=== PATIENT | female | born 1970 | race Two or more races ===

== ENCOUNTER 2018-03-11 13:01 | Inpatient (IN) | payer OTHER ==
[2018-03-11 15:28] VITALS: BMI 26.4
--- NOTE | 2018-03-11 15:35 | HP ---
Admission [facility] Chief Complaint: "I'm all over the place and I want my life back in place." Patient is here for Rehab for Alcohol and Crack Cocaine. Allergies/Adverse Reactions: Allergies Allergy/AdvReac Type Severity Reaction Status Date / Time No Known Drug Allergies Allergy Verified 03/17/14 19:44 milk AdvReac Verified 03/17/14 19:09 History of Present Illness: Patient is a 47 YO female here for Rehab for Alcohol and Cocaine use. Patient had one previous Detox/Rehab admission at [facility] in 2013. Patient has had several Detox / Rehab amdissions at various locations (most recent: [facility] ( [facility]), 2017). Exam Limitations: No Limitations - Ebola screening Have you traveled outside of the country in the last 21 days: No Have you had contact with anyone from an Ebola affected area: No Have you been sick,other than usual withdrawal symptoms: No Do you have a fever: No - Review of Systems Constitutional: Loss of Appetite, Malaise, Unintentional Wgt. Loss (Lost approx. 20 lbs. over last 3 months.) EENT: reports: Blurred Vision Respiratory: reports: No Symptoms reported Cardiac: reports: No Symptoms Reported GI: reports: Constipated, Poor Appetite : reports: No Symptoms Reported Musculoskeletal: reports: Back Pain Integumentary: reports: No Symptoms Reported Neuro: reports: Headache, Tremors Endocrine: reports: No Symptoms Reported Hematology: reports: Anemia (Iron-Deficiency type. Takes Iron supplement daily.) Psychiatric: reports: Judgement Intact, Mood/Affect Appropiate, Anxious, Depressed (Takes med.) Other Systems: Reviewed and Negative Patient History - Patient Medical History Hx Anemia: Yes (take iron pills) Hx Asthma: No Hx Chronic Obstructive Pulmonary Disease (COPD): No Hx Cancer: No Hx Cardiac Disorders: No Hx Congestive Heart Failure: No Hx Hypertension: Yes (On meds.) Hx Hypercholesterolemia: No Hx Pacemaker: No HX Cerebrovascular Accident: Yes ('Mini-Stroke' in 2006; No residual effect.) Hx Seizures: No Hx Dementia: No Hx Diabetes: No Hx Gastrointestinal Disorders: No Hx Liver Disease: No Hx Genitourinary Disorders: No Hx Sexually Transmitted Disorders: Yes (TRICHOMONIASIS IN PAST, TREATED.) Hx Renal Disease (ESRD): No Hx Thyroid Disease: No Hx Human Immunodeficiency Virus (HIV): No Hx Hepatitis C: No (Negative History.) Hx Depression: Yes (On meds.) Hx Suicide Attempt: Yes (X3 TIME BY SLASHING WRIST AND DRINKING CLORAX; PT DENIES CURRENT SI / HI.) Hx Bipolar Disorder: Yes (Takes meds.) Hx Schizophrenia: Yes (Schizoaffective Disorder; Takes Meds.) - Patient Surgical History Past Surgical History: Yes Hx Neurologic Surgery: No Hx Cataract Extraction: No Hx Cardiac Surgery: No Hx Lung Surgery: No Hx Breast Surgery: No Hx Breast Biopsy: No Hx Abdominal Surgery: No Hx Appendectomy: No Hx Cholecystectomy: No Hx Genitourinary Surgery: Yes (fibroids removed (1997); Relapsed.) Hx Section: No Hx Orthopedic Surgery: No Hx Hysterectomy: No Other Surgical History: DENIES. Anesthesia Reaction: No - PPD History Previous Implant?: Yes Documented Results: Positive w/o proof (CXR (Negative) at [facility], 2017.) Implanted On Prior [facility] Admission?: No PPD to be Administered?: No - Reproductive History Patient is a Female of Child Bearing Age (11 -55 yrs old): Yes Last Menstrual Period: 11/30/13 Patient : No - Smoking Cessation Smoking history: Former smoker Have you smoked in the past 12 months: Yes Aproximately how many cigarettes per day: 20 If you are a former smoker, when did you quit?: 02/21/2018 Cigars Per Day: 0 Hx Chewing Tobacco Use: No Initiated information on smoking cessation: Yes 'Breaking Loose' booklet given: 03/11/18 (GIVEN TO PATIENT.) - Substance & Tx. History Hx Alcohol Use: Yes Hx Substance Use: Yes Substance Use Type: Alcohol, Cocaine Hx Substance Use Treatment: Yes (Detox/Rehab at [facility]: 2017; Detox/Rehab at [facility]: 2013.) - Substances Abused Alcohol Route: Oral Frequency: Daily Amount used: 2 Pints Hard Liquor Age of first use: 14 Date of Last Use: 02/21/18 Crack Route: Smoking Frequency: Daily Amount used: $ 200 Age of first use: 33 Date of Last Use: 02/21/18 Family Disease History - Family Disease History Family Disease History: Heart Disease: Grandparent (HTN), Father (HTN; Cirrhosis of Liver, .), Mother (HTN), Other: Father Admission Physical Exam [facility] - Vital Signs Vital Signs: Vital Signs - 24 hr 03/11/18 15:24 Temperature 98.5 F Pulse Rate 91 H Respiratory 18 Rate Blood Pressure 129/85 - Physical General Appearance: Yes: No Apparent Distress, Nourished, Appropriately Dressed , Tremorous, Anxious HEENTM: Yes: Hearing grossly Normal, Normocephalic, Normal Voice, ZAIDA, Pharynx Normal Respiratory: Yes: Chest Non-Tender, Lungs Clear, No Respiratory Distress, No Accessory Muscle Use Neck: Yes: No masses,lesions,Nodules, Supple, Trachea in good position Breast: Yes: Breast Exam Deferred Cardiology: Yes: Regular Rhythm, Regular Rate, S1, S2 Abdominal: Yes: Normal Bowel Sounds, Non Tender, Flat, Soft Genitourinary: Yes: Within Normal Limits Back: Yes: Decreased Range of Motion Musculoskeletal: Yes: Gait Steady, Back pain Extremities: Yes: Normal Capillary Refill, Normal Range of Motion, Non-Tender, Tremors Neurological: Yes: Fully Oriented, Alert, Normal Mood/Affect, Normal Response Integumentary: Yes: Normal Color, Dry, Warm Lymphatic: Yes: Within Normal Limits - Diagnostic (1) Low back pain Current Visit: Yes Status: Chronic Qualifiers: Chronicity: unspecified Back pain laterality: unspecified Sciatica presence: without sciatica Qualified Code(s): M54.5 - Low back pain (2) History of schizoaffective disorder Current Visit: Yes Status: Suspected (3) Alcohol dependence Current Visit: Yes Status: Chronic Qualifiers: Substance use status: uncomplicated Qualified Code(s): F10.20 - Alcohol dependence, uncomplicated (4) Cocaine dependence Current Visit: Yes Status: Chronic Qualifiers: Substance use status: uncomplicated Qualified Code(s): F14.20 - Cocaine dependence, uncomplicated (5) History of depression Current Visit: Yes Status: Suspected (6) History of bipolar disorder Current Visit: Yes Status: Suspected (7) History of uterine fibroid Current Visit: Yes Status: Chronic (8) Hypertension Current Visit: Yes Status: Chronic Qualifiers: Hypertension type: essential hypertension Qualified Code(s): I10 - Essential (primary) hypertension Cleared for Admission [facility] - Detox or Rehab Claeared for Rehab Admission: Yes [facility] Breath Alcohol Content Breath Alcohol Content: 0 Urine Pregancy Test - Result Urine Test Results: Negative- NO Line Present Urine Drug Screen - Results Drug Screen Negative: No Urine Drug Screen Results: TCA-Tricyclic Antidepress Inpatient Rehab Admission - Initial Determination Are CD services needed?: Yes Free of communicable disease: Yes Not in need of hospitalization: Yes - Rehab Admission Criteria Previous failed treatment: Yes Comorbidities: Yes Patient is meeting Inpatient Rehab admission criteria:: Yes
[2018-03-11] MEDS ORDERED: MAG HYDROX/AL HYDROX/SIMETH 30 ML UNIT-DOSE CUP PO PRN (16:35)
[2018-03-11] MEDS ORDERED: MENTHOL/PHENOL 1 EACH UD MM PRN (16:35)
[2018-03-11] MEDS ORDERED: MAGNESIUM HYDROX 2400MG/30ML ORAL SUSPENSION 30 ML CUP PO PRN (16:35)
[2018-03-11] MEDS ORDERED: LOPERAMIDE HCL 2 MG CAPSULE PO PRN (16:35)
[2018-03-11] MEDS ORDERED: P-EPHED 60MG/TRIPROLIDI 2.5MG TABLET PO PRN (16:35)
[2018-03-11] MEDS ORDERED: guaiFENesin/D-METHORPHAN HB 10 ML UNIT-DOSE CUPS PO PRN (16:35)
[2018-03-11 18:27] LABS: HEMATOCRIT 34.8 % (32.4-45.2); HEMOGLOBIN 11.3 GM/dL (10.7-15.3); MCH 26.3 pg (25.7-33.7); MCHC 32.5 g/dl (32.0-36.0); MEAN PLT VOLUME 9.9 fl (7.5-11.1); PLATELET COUNT 240 K/MM3 (134-434); RBC 4.29 M/mm3 (3.60-5.2); RDW 24.6 % (11.6-15.6); WHITE BLOOD COUNT 7.3 K/mm3 (4.0-10.0)
[2018-03-11 18:30] LABS: ADD RBC MORPHOLOGY YES
[2018-03-11 18:41] LABS: ALBUMIN 3.6 g/dl (3.4-5.0); ALK PHOS 80 U/L (45-117); ANION GAP 5 (8-16); BILIRUBIN,TOTAL 0.3 mg/dL (0.2-1.0); BLOOD UREA NITROGEN 15 mg/dL (7-18); CHLORIDE 106 mmol/L (98-107); CO2 28 mmol/L (21-32); CREATININE 0.6 mg/dL (0.55-1.02); GLUCOSE,RANDOM 97 mg/dL (74-106); POTASSIUM 4.1 mmol/L (3.5-5.1); SGOT/AST 15 U/L (15-37); SGPT/ALT 23 U/L (12-78); SODIUM 139 mmol/L (136-145); TOT PROT 7.2 g/dl (6.4-8.2)
--- NOTE | 2018-03-11 20:53 | PN ---
[facility] Progress Note Note: Psychiatry Attending's system administration manager note : Called to enter orders for medications. New admission : 42 y/o female diagnosed with Schizoaffective Disorder. Discharged from [facility] today (self-report). Direct admission to [address]. Medications requested : Seroquel 50 mg/am + 300 mg/hs Remeron 30 mg/am NOT taken for two years until admission to [facility]. Restarted during hospitalization this February 2018. Not consistent with pharmacy claims of 03/11/18. Document from [facility] attests to seroquel 50 mg/300 mg. As per nurse on duty.Patient insists on resuming medications. Plan : Will resume seroquel at the dose of 150 mg po hs. Dose to be adjusted in AM after evaluation by unit psychiatrist. Discussed with the patient.
[2018-03-11] MEDS: DOCUSATE SODIUM 100 MG CAPSULE (FP) PO SCH (21:36)
[2018-03-11 21:37] LABS: ANISOCYTOSIS 2+
[2018-03-11] MEDS: QUEtiapine FUMARATE 50 MG TABLET PO SCH (21:37)
[2018-03-11] MEDS: THIAMINE HCL 100 MG TABLET (FP) PO SCH (21:37)
[2018-03-11] MEDS: AMMONIUM LACTATE 12% LOTION 225 GM BOTTLE TP SCH (21:38)
[2018-03-11] MEDS ORDERED: MELATONIN 5 MG TABLETS PO PRN (22:00)
[2018-03-11 23:41] LABS: URINE APPEARANCE CLOUDY; URINE BILIRUBIN NEGATIVE (<2.0 mg/dL); URINE COLOR YELLOW; URINE GLUCOSE (UA) NEGATIVE (NEGATIVE); URINE KETONE NEGATIVE (NEGATIVE); URINE LEUK ESTERASE NEGATIVE (NEGATIVE); URINE NITRITE NEGATIVE (NEGATIVE); URINE PROTEIN NEGATIVE (NEGATIVE); URINE UROBILINOGEN NEGATIVE mg/dL (0.2-1.0)
[2018-03-12] MEDS: FERROUS SO4 325 MG TABLET (FP) PO SCH ×2 (07:25→17:05)
[2018-03-12] MEDS ORDERED: PATIENT'S OWN MEDICATION (NON-FORMULARY) (Ferrous Sulfate [Ferrous Sulfate] 325 MG) PO SCH (10:00)
[2018-03-12] MEDS: DOCUSATE SODIUM 100 MG CAPSULE (FP) PO SCH ×2 (10:21→21:35)
[2018-03-12] MEDS: ASPIRIN 81 MG CHEWABLE TABLETS PO SCH (10:21)
[2018-03-12] MEDS: LISINOPRIL 20 MG TABLET (FP) PO SCH (10:22)
[2018-03-12] MEDS: FOLIC ACID 1 MG TABLET (FP) PO SCH (10:22)
[2018-03-12] MEDS: PRENATAL VITAMINS W/ FOLIC ACID TABLET (FP) PO SCH (10:22)
[2018-03-12] MEDS: amLODIPine BESYLATE 5 MG TABLET (FP) PO SCH (10:22)
[2018-03-12] MEDS: AMMONIUM LACTATE 12% LOTION 225 GM BOTTLE TP SCH ×2 (10:22→21:36)
[2018-03-12] MEDS ORDERED: PT OWN MED DRAWER 7, Y5N ONE (10:25)
--- NOTE | 2018-03-12 11:30 | EKG ---
Test Reason : Blood Pressure : / mmHG Vent. Rate : 094 BPM Atrial Rate : 094 BPM P-R Int : 184 ms QRS Dur : 070 ms QT Int : 356 ms P-R-T Axes : 035 026 032 degrees QTc Int : 445 ms NORMAL SINUS RHYTHM NONSPECIFIC T WAVE ABNORMALITY ABNORMAL ECG NO PREVIOUS ECGS AVAILABLE Confirmed by CLAUDIA SANTOS MD ([id number]) on 03/12/2018 11:29:47 AM Referred By: Confirmed By:CLAUDIA SANTOS MD
[2018-03-12] MEDS: MIRTAZAPINE 15 MG TABLET (FP) PO SCH (11:34)
[2018-03-12] MEDS ORDERED: QUEtiapine FUMARATE 50 MG TABLET PO SCH (14:00)
[2018-03-12] MEDS: ACETAMINOPHEN 325 MG TABLET (FP) PO PRN (16:22)
[2018-03-12] MEDS: THIAMINE HCL 100 MG TABLET (FP) PO SCH (21:34)
[2018-03-12] MEDS: QUEtiapine FUMARATE 50 MG TABLET PO SCH (21:35)
[2018-03-13] MEDS: FERROUS SO4 325 MG TABLET (FP) PO SCH ×2 (07:02→17:42)
[2018-03-13] MEDS: LISINOPRIL 20 MG TABLET (FP) PO SCH ×2 (07:18→10:57)
[2018-03-13] MEDS: amLODIPine BESYLATE 5 MG TABLET (FP) PO SCH ×2 (07:19→10:57)
--- NOTE | 2018-03-13 10:35 | PN ---
[facility] Progress Note Note: CXR results normal. Continue to monitor clinically.
[2018-03-13] MEDS: PRENATAL VITAMINS W/ FOLIC ACID TABLET (FP) PO SCH (10:53)
[2018-03-13] MEDS: FOLIC ACID 1 MG TABLET (FP) PO SCH (10:54)
[2018-03-13] MEDS: MIRTAZAPINE 15 MG TABLET (FP) PO SCH (10:54)
[2018-03-13] MEDS: ASPIRIN 81 MG CHEWABLE TABLETS PO SCH (10:56)
[2018-03-13] MEDS: AMMONIUM LACTATE 12% LOTION 225 GM BOTTLE TP SCH ×2 (10:57→21:45)
[2018-03-13] MEDS: DOCUSATE SODIUM 100 MG CAPSULE (FP) PO SCH ×2 (10:57→21:44)
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
[2018-03-13] MEDS: QUEtiapine FUMARATE 50 MG TABLET PO SCH ×2 (14:09→17:42)
[2018-03-13] MEDS: ACETAMINOPHEN 325 MG TABLET (FP) PO PRN ×2 (15:05→21:43)
[2018-03-13] MEDS: THIAMINE HCL 100 MG TABLET (FP) PO SCH (21:44)
[2018-03-13] MEDS: QUEtiapine FUMARATE 200 MG TABLET PO SCH (21:44)
[2018-03-14] MEDS ORDERED: cloNIDine HCL 0.1 MG TABLET PO ONE (06:43)
[2018-03-14] MEDS: FERROUS SO4 325 MG TABLET (FP) PO SCH ×2 (07:03→17:34)
[2018-03-14] MEDS: IBUPROFEN 400 MG TABLET (FP) PO PRN (07:03)
[2018-03-14] MEDS: ASPIRIN 81 MG CHEWABLE TABLETS PO SCH (09:33)
[2018-03-14] MEDS: FOLIC ACID 1 MG TABLET (FP) PO SCH (09:33)
[2018-03-14] MEDS: AMMONIUM LACTATE 12% LOTION 225 GM BOTTLE TP SCH ×2 (09:33→21:40)
[2018-03-14] MEDS: DOCUSATE SODIUM 100 MG CAPSULE (FP) PO SCH ×2 (09:33→21:39)
[2018-03-14] MEDS: PRENATAL VITAMINS W/ FOLIC ACID TABLET (FP) PO SCH (09:34)
[2018-03-14] MEDS: QUEtiapine FUMARATE 50 MG TABLET PO SCH ×3 (09:34→17:34)
[2018-03-14] MEDS: amLODIPine BESYLATE 5 MG TABLET (FP) PO SCH (09:34)
[2018-03-14] MEDS: LISINOPRIL 20 MG TABLET (FP) PO SCH (09:34)
[2018-03-14] MEDS: MIRTAZAPINE 15 MG TABLET (FP) PO SCH (09:34)
[2018-03-14] MEDS: THIAMINE HCL 100 MG TABLET (FP) PO SCH (21:39)
[2018-03-14] MEDS: QUEtiapine FUMARATE 200 MG TABLET PO SCH (21:39)
[2018-03-15] MEDS: FERROUS SO4 325 MG TABLET (FP) PO SCH ×2 (07:01→17:50)
[2018-03-15] MEDS: amLODIPine BESYLATE 5 MG TABLET (FP) PO SCH (10:32)
[2018-03-15] MEDS: DOCUSATE SODIUM 100 MG CAPSULE (FP) PO SCH ×2 (10:32→21:34)
[2018-03-15] MEDS: ASPIRIN 81 MG CHEWABLE TABLETS PO SCH (10:32)
[2018-03-15] MEDS: QUEtiapine FUMARATE 50 MG TABLET PO SCH ×3 (10:32→17:50)
[2018-03-15] MEDS: PRENATAL VITAMINS W/ FOLIC ACID TABLET (FP) PO SCH (10:32)
[2018-03-15] MEDS: FOLIC ACID 1 MG TABLET (FP) PO SCH (10:32)
[2018-03-15] MEDS: MIRTAZAPINE 15 MG TABLET (FP) PO SCH (10:32)
[2018-03-15] MEDS: AMMONIUM LACTATE 12% LOTION 225 GM BOTTLE TP SCH ×2 (10:33→21:35)
[2018-03-15] MEDS: LISINOPRIL 20 MG TABLET (FP) PO SCH (10:33)
[2018-03-15] MEDS: THIAMINE HCL 100 MG TABLET (FP) PO SCH (21:34)
[2018-03-15] MEDS: QUEtiapine FUMARATE 200 MG TABLET PO SCH (21:34)
[2018-03-16] MEDS: FERROUS SO4 325 MG TABLET (FP) PO SCH ×2 (07:06→18:04)
[2018-03-16] MEDS: FOLIC ACID 1 MG TABLET (FP) PO SCH (10:01)
[2018-03-16] MEDS: DOCUSATE SODIUM 100 MG CAPSULE (FP) PO SCH ×2 (10:01→21:54)
[2018-03-16] MEDS: AMMONIUM LACTATE 12% LOTION 225 GM BOTTLE TP SCH ×2 (10:01→21:54)
[2018-03-16] MEDS: ASPIRIN 81 MG CHEWABLE TABLETS PO SCH (10:01)
[2018-03-16] MEDS: amLODIPine BESYLATE 5 MG TABLET (FP) PO SCH (10:01)
[2018-03-16] MEDS: LISINOPRIL 20 MG TABLET (FP) PO SCH (10:01)
[2018-03-16] MEDS: PRENATAL VITAMINS W/ FOLIC ACID TABLET (FP) PO SCH (10:01)
[2018-03-16] MEDS: MIRTAZAPINE 15 MG TABLET (FP) PO SCH (10:02)
[2018-03-16] MEDS: QUEtiapine FUMARATE 50 MG TABLET PO SCH ×3 (10:02→18:04)
[2018-03-16] MEDS ORDERED: COLLOIDAL OATMEAL 1 BAR EACH TP PRN (10:19)
[2018-03-16] MEDS: ACETAMINOPHEN 325 MG TABLET (FP) PO PRN (19:25)
[2018-03-16] MEDS: THIAMINE HCL 100 MG TABLET (FP) PO SCH (21:54)
[2018-03-16] MEDS: QUEtiapine FUMARATE 200 MG TABLET PO SCH (21:54)
[2018-03-17] MEDS: FERROUS SO4 325 MG TABLET (FP) PO SCH ×2 (08:24→18:13)
[2018-03-17] MEDS: FOLIC ACID 1 MG TABLET (FP) PO SCH (10:18)
[2018-03-17] MEDS: DOCUSATE SODIUM 100 MG CAPSULE (FP) PO SCH ×2 (10:18→21:52)
[2018-03-17] MEDS: AMMONIUM LACTATE 12% LOTION 225 GM BOTTLE TP SCH ×2 (10:18→21:52)
[2018-03-17] MEDS: amLODIPine BESYLATE 5 MG TABLET (FP) PO SCH (10:18)
[2018-03-17] MEDS: ASPIRIN 81 MG CHEWABLE TABLETS PO SCH (10:18)
[2018-03-17] MEDS: LISINOPRIL 20 MG TABLET (FP) PO SCH (10:19)
[2018-03-17] MEDS: MIRTAZAPINE 15 MG TABLET (FP) PO SCH (10:19)
[2018-03-17] MEDS: QUEtiapine FUMARATE 50 MG TABLET PO SCH ×3 (10:19→18:13)
[2018-03-17] MEDS: PRENATAL VITAMINS W/ FOLIC ACID TABLET (FP) PO SCH (10:19)
[2018-03-17] MEDS: ACETAMINOPHEN 325 MG TABLET (FP) PO PRN (11:36)
[2018-03-17] MEDS: THIAMINE HCL 100 MG TABLET (FP) PO SCH (21:51)
[2018-03-17] MEDS: QUEtiapine FUMARATE 200 MG TABLET PO SCH (21:52)
[2018-03-18] MEDS: FERROUS SO4 325 MG TABLET (FP) PO SCH ×2 (07:50→17:34)
[2018-03-18] MEDS: QUEtiapine FUMARATE 50 MG TABLET PO SCH ×3 (10:20→17:34)
[2018-03-18] MEDS: ASPIRIN 81 MG CHEWABLE TABLETS PO SCH (10:20)
[2018-03-18] MEDS: DOCUSATE SODIUM 100 MG CAPSULE (FP) PO SCH ×2 (10:20→21:36)
[2018-03-18] MEDS: PRENATAL VITAMINS W/ FOLIC ACID TABLET (FP) PO SCH (10:20)
[2018-03-18] MEDS: MIRTAZAPINE 15 MG TABLET (FP) PO SCH (10:20)
[2018-03-18] MEDS: amLODIPine BESYLATE 5 MG TABLET (FP) PO SCH (10:20)
[2018-03-18] MEDS: FOLIC ACID 1 MG TABLET (FP) PO SCH (10:20)
[2018-03-18] MEDS: LISINOPRIL 20 MG TABLET (FP) PO SCH (10:20)
[2018-03-18] MEDS: AMMONIUM LACTATE 12% LOTION 225 GM BOTTLE TP SCH ×2 (10:28→21:35)
[2018-03-18] MEDS: MAGNESIUM CITRATE 300 ML BOTTLE PO PRN (10:36)
[2018-03-18] MEDS: QUEtiapine FUMARATE 200 MG TABLET PO SCH (21:36)
[2018-03-18] MEDS: THIAMINE HCL 100 MG TABLET (FP) PO SCH (21:36)
[2018-03-18] MEDS ORDERED: PT OWN MED DRAWER 7, Y5N ONE (22:11)
[2018-03-19] MEDS: FERROUS SO4 325 MG TABLET (FP) PO SCH ×2 (07:10→18:06)
[2018-03-19] MEDS: QUEtiapine FUMARATE 50 MG TABLET PO SCH ×3 (10:25→18:06)
[2018-03-19] MEDS: PRENATAL VITAMINS W/ FOLIC ACID TABLET (FP) PO SCH (10:25)
[2018-03-19] MEDS: amLODIPine BESYLATE 5 MG TABLET (FP) PO SCH (10:25)
[2018-03-19] MEDS: LISINOPRIL 20 MG TABLET (FP) PO SCH (10:25)
[2018-03-19] MEDS: DOCUSATE SODIUM 100 MG CAPSULE (FP) PO SCH ×2 (10:25→22:02)
[2018-03-19] MEDS: ASPIRIN 81 MG CHEWABLE TABLETS PO SCH (10:25)
[2018-03-19] MEDS: MIRTAZAPINE 15 MG TABLET (FP) PO SCH (10:25)
[2018-03-19] MEDS: AMMONIUM LACTATE 12% LOTION 225 GM BOTTLE TP SCH ×2 (10:26→22:03)
[2018-03-19] MEDS: FOLIC ACID 1 MG TABLET (FP) PO SCH (10:26)
[2018-03-19] MEDS: MAGNESIUM CITRATE 300 ML BOTTLE PO PRN (14:51)
[2018-03-19] MEDS: IBUPROFEN 400 MG TABLET (FP) PO PRN (20:01)
[2018-03-19] MEDS: QUEtiapine FUMARATE 200 MG TABLET PO SCH (22:02)
[2018-03-19] MEDS: THIAMINE HCL 100 MG TABLET (FP) PO SCH (22:02)
[2018-03-20] MEDS: FERROUS SO4 325 MG TABLET (FP) PO SCH ×2 (07:03→17:37)
[2018-03-20] MEDS: LISINOPRIL 20 MG TABLET (FP) PO SCH (10:44)
[2018-03-20] MEDS: MIRTAZAPINE 15 MG TABLET (FP) PO SCH (10:44)
[2018-03-20] MEDS: amLODIPine BESYLATE 5 MG TABLET (FP) PO SCH (10:44)
[2018-03-20] MEDS: PRENATAL VITAMINS W/ FOLIC ACID TABLET (FP) PO SCH (10:44)
[2018-03-20] MEDS: FOLIC ACID 1 MG TABLET (FP) PO SCH (10:44)
[2018-03-20] MEDS: QUEtiapine FUMARATE 50 MG TABLET PO SCH ×3 (10:48→17:37)
[2018-03-20] MEDS: DOCUSATE SODIUM 100 MG CAPSULE (FP) PO SCH ×2 (10:48→21:58)
[2018-03-20] MEDS: ASPIRIN 81 MG CHEWABLE TABLETS PO SCH (10:48)
[2018-03-20] MEDS: AMMONIUM LACTATE 12% LOTION 225 GM BOTTLE TP SCH ×2 (10:49→23:22)
[2018-03-20] MEDS ORDERED: PT OWN MED DRAWER 7, Y5N ONE ×2 (10:49→19:48)
--- NOTE | 2018-03-20 15:31 | PN ---
Psychiatric Progress Note Vital Signs: Vital Signs Period Temp Pulse Resp BP Sys/Jensen Pulse Ox Last 24 Hr 97.7 F 80-91 -18 147-151/91-92 Date of Session: 03/20/18 Chief Complaint:: I have sleeping difficulties,i used to take Seroquel 300 mg and it helped. HPI: Patient addressed Alcohol and Cocaine dependence comorbid with Schizoaffective disorder. ROS: Significant for H/O Uterine fibroids,Low back pain,HTN. Current Medications: Active Medications Generic Name Dose Route Start Last Admin Trade Name Freq PRN Reason Stop Dose Admin Acetaminophen 650 mg 03/11/18 16:35 03/17/18 11:36 Tylenol - PO 650 mg Q4H PRN Administration FEVER Al Hydroxide/Mg Hydroxide 30 ml 03/11/18 16:35 Mylanta Oral Suspension - PO Q6H PRN DYSPEPSIA Amlodipine Besylate 5 mg 03/12/18 10:00 03/20/18 10:44 Norvasc - PO 5 mg DAILY ADRIANNA Administration Aspirin 81 mg 03/12/18 10:00 03/20/18 10:48 Asa - PO 81 mg DAILY ADRIANNA Administration Colloidal Oatmeal 1 applic 03/16/18 10:19 03/16/18 21:53 Aveeno Soap - TP 1 applic DAILY PRN Administration HYGEINE Docusate Sodium 100 mg 03/11/18 22:00 03/20/18 10:48 Colace - PO 100 mg BID ADRIANNA Administration Eucalyptus/Menthol/Phenol/Sorbitol 1 each 03/11/18 16:35 Cepastat Lozenge - MM Q4H PRN SORE THROAT Ferrous Sulfate 325 mg 03/12/18 08:00 03/20/18 07:03 Feosol - PO 325 mg BIDWM ADRIANNA Administration Folic Acid 1 mg 03/12/18 10:00 03/20/18 10:44 Folic Acid - PO 1 mg DAILY ADRIANNA Administration Guaifenesin 10 ml 03/11/18 16:35 Robitussin Dm - PO Q6H PRN COUGH Ibuprofen 400 mg 03/11/18 16:35 03/19/18 20:01 Motrin - PO 400 mg Q6H PRN Administration Pain level 4-6 Lactic Acid 1 applic 03/11/18 22:00 03/20/18 10:49 Lac-Hydrin 12 TP 1 applic BID ADRIANNA Administration Lisinopril 20 mg 03/12/18 10:00 03/20/18 10:44 Prinivil PO 20 mg DAILY ADRIANNA Administration Loperamide HCl 4 mg 03/11/18 16:35 Imodium - PO Q6H PRN DIARRHEA Magnesium Citrate 300 ml 03/11/18 16:35 03/19/18 14:51 Citroma - PO 300 ml Q48H PRN Administration CONSTIPATION Magnesium Hydroxide 30 ml 03/11/18 16:35 Milk Of Magnesia - PO DAILY PRN CONSTIPATION Melatonin 5 mg 03/11/18 22:00 03/18/18 21:36 Melatonin PO 5 mg HS PRN Administration INSOMNIA Mirtazapine 15 mg 03/12/18 11:45 03/20/18 10:44 Remeron - PO 15 mg DAILY ADRIANNA Administration Multivit/Folic Acid/Iron 1 tab 03/12/18 10:00 03/20/18 10:44 Vitamins (Sjr) - PO 1 tab DAILY ADRIANNA Administration Pseudoephedrine/Triprolidine 1 combo 03/11/18 16:35 Actifed - PO TID PRN NASAL CONGESTION Quetiapine Fumarate 50 mg 03/13/18 14:00 03/20/18 13:25 Seroquel - PO 50 mg TID@1000,1400,1800 ADRIANNA Administration Quetiapine Fumarate 300 mg 03/20/18 22:00 Seroquel - PO HS ADRIANNA Thiamine HCl 100 mg 03/11/18 22:00 03/19/18 22:02 Vitamin B1 - PO 100 mg HS ADRIANNA Administration Current Side Effect: No Lab tests ordered: No Lab tests reviewed: Yes Provider note:: Patient was evaluated in my office today,chart was revuewed, treatment plan has been discussed with the patient .properties of Seroquel has been discussed including side effects,benefits and dose adjustment.Seroquel 200 mg po hs will be adjusted to 300 mg po hs. Supportive therapy,psychoeducation has been provided. Total face to face time:: 30 Mental Status Exam - Mental Status Exam Alert and Oriented to: Time, Place, Person Cognitive Function: Grossly Intact Patient Appearance: Well Groomed Mood: Anxious Affect: Mood Congruent, Labile Patient Behavior: Cooperative Speech Pattern: Clear Voice Loudness: Normal Thought Process: Goal Oriented Thought Disorder: Not Present Hallucinations: Denies Suicidal Ideation: Denies Homicidal Ideation: Denies Insight/Judgement: Fair Sleep: Difficulty falling asleep Appetite: Good Muscle strength/Tone: Normal Gait/Station: Normal Psychiatric Treatment Plan - Problem List (1) Alcohol dependence Current Visit: Yes Qualifiers: Substance use status: uncomplicated Qualified Code(s): F10.20 - Alcohol dependence, uncomplicated (2) Cocaine dependence Current Visit: Yes Qualifiers: Substance use status: uncomplicated Qualified Code(s): F14.20 - Cocaine dependence, uncomplicated (3) History of uterine fibroid Current Visit: Yes (4) Hypertension Current Visit: Yes Qualifiers: Hypertension type: essential hypertension Qualified Code(s): I10 - Essential (primary) hypertension (5) Low back pain Current Visit: Yes Qualifiers: Chronicity: unspecified Back pain laterality: unspecified Sciatica presence: without sciatica Qualified Code(s): M54.5 - Low back pain (6) Schizoaffective disorder Current Visit: Yes
[2018-03-20] MEDS: THIAMINE HCL 100 MG TABLET (FP) PO SCH (21:58)
[2018-03-20] MEDS ORDERED: QUEtiapine FUMARATE 300 MG TABLET PO SCH (22:00)
[2018-03-21] MEDS: FERROUS SO4 325 MG TABLET (FP) PO SCH (07:28)
[2018-03-21 07:33] VITALS: TEMP 97.9
[2018-03-21 09:31] VITALS: BP 138/81; PULSE 75
[2018-03-21] MEDS: DOCUSATE SODIUM 100 MG CAPSULE (FP) PO SCH (10:32)
[2018-03-21] MEDS: FOLIC ACID 1 MG TABLET (FP) PO SCH (10:32)
[2018-03-21] MEDS: LISINOPRIL 20 MG TABLET (FP) PO SCH (10:32)
[2018-03-21] MEDS: PRENATAL VITAMINS W/ FOLIC ACID TABLET (FP) PO SCH (10:32)
[2018-03-21] MEDS: MIRTAZAPINE 15 MG TABLET (FP) PO SCH (10:32)
[2018-03-21] MEDS: QUEtiapine FUMARATE 50 MG TABLET PO SCH ×3 (10:32→15:00)
[2018-03-21] MEDS: AMMONIUM LACTATE 12% LOTION 225 GM BOTTLE TP SCH (10:32)
[2018-03-21] MEDS: amLODIPine BESYLATE 5 MG TABLET (FP) PO SCH (10:32)
[2018-03-21] MEDS: ASPIRIN 81 MG CHEWABLE TABLETS PO SCH (10:32)
--- NOTE | 2018-03-21 17:22 | PN ---
[facility] Progress Note Note: Psychiatrist clinical nurse occupational medicine note: Called by nursing staff for patient wanting to leave today before fully completing the program but after partially meeting her treatment goals. She was met with the weekend counselor on duty and she was given a referral to [facility] for outpatient treatment. Scripts for 30 days supply of her psychotropic medications(Seroquel 50 mg tid & 300 mg hs and Remeron 15 mg po daily) were electronically transmitted to [facility]. Refer to staff note for more information. Patient is reportedly stable for discharge today
== END 2018-03-21 16:05 | disposition home or self-care (01) | DRG 772 ==
LOC: YASAS 13:01 → Y3E 16:58
PROVIDERS: ADMIT Psychiatry & Neurology Psychiatry; ATTEND Psychiatry & Neurology Psychiatry
PROC: HZ42ZZZ Group Counseling for Substance Abuse Treatment, Cognitive-Behavioral (ICD-10-PCS; principal; 2018-03-11)
DX: F10.20 Alcohol dependence, uncomplicated (principal); F14.20 Cocaine dependence, uncomplicated; F25.9 Schizoaffective disorder, unspecified; F31.9 Bipolar disorder, unspecified; Z87.42 Personal history of other diseases of the female genital tract; Z86.73 Personal history of transient ischemic attack (TIA), and cerebral infarction without residual deficits; Z86.69 Personal history of other diseases of the nervous system and sense organs; Z91.5 Personal history of self-harm
CPT/HCPCS: 36415; 71046-TC-FY; 80053; 81003; 85027; 86593; 93005; 93010; J0735